=== PATIENT | male | born 1950 | race Caucasian/White ===

== ENCOUNTER 2024-07-26 12:44 | Inpatient (IN) ==
[2024-07-26] MEDS: Ondansetron 4 mg VIAL 2 MG/ML 2 ml VIAL IV ONE (13:03)
[2024-07-26] MEDS ORDERED: Atropine 1 MG/ML INJ 1 ML VIAL IV PUSH PRN (13:43)
[2024-07-26] MEDS ORDERED: Atropine 0.1 MG/ML 10 ml SYR (1 mg) ONE (13:52)
[2024-07-26 15:13] LABS: High Sensitivity Troponin 1 Hr 4 pg/mL (<20)
[2024-07-26] MEDS: Ondansetron 4 mg VIAL 2 MG/ML 2 ml VIAL IV PRN (16:22)
[2024-07-26] MEDS ORDERED: Atropine 0.1 MG/ML 10 ml SYR (1 mg) IV PUSH PRN (17:04)
[2024-07-27] MEDS: NS 0.9% 1000 ml BAG 1,000 ML IV SCH (05:56)
[2024-07-27 06:11] LABS: ABS Eosinophils 0.1 10^3/uL (0.0-0.5); ABS Lymphocytes 1.9 10^3/uL (1.0-4.8); ABS Monocytes 0.9 10^3/uL (0.0-1.1); ABS Neutrophils 7.1 10^3/uL (1.5-7.6); Hematocrit 40.4 % (38-53); Hemoglobin 13.6 g/dL (13.2-16.3); Lymphocyte % 18.7 %; Mean Corpuscular Hemoglobin 29.1 pg (27-33); Mean Corpuscular Hgb Conc 33.8 g/dL (31-36); Mean Corpuscular Volume 86.1 fL (80-97); Mean Platelet Volume 8.9 fL (7.5-11.2); Platelet Count 177 10^3/uL (150-450); Red Blood Count 4.69 10^6/uL (4.06-5.63); Red Cell Distribution Width 13.9 % (12-17)
[2024-07-27 06:33] LABS: Calcium 8.5 mg/dL (8.6-10.3); Creatinine, Serum 0.81 mg/dL (0.67-1.17); Magnesium 1.9 mg/dL (1.9-2.7); Phosphorus 3.1 mg/dL (2.5-5.0); Potassium 4.2 mmol/L (3.5-5.0); eGFR CKD-EPI 93.1 (>60)
[2024-07-27] MEDS: Magnesium Sulfate 2 gm BAG 2 GM/50 ML BAG IVPB ONE (07:46)
[2024-07-27] MEDS ORDERED: ceFAZolin 2 GM PREMIX 2 GM/50 ML BAG IV ONE (12:00)
[2024-07-27] MEDS ORDERED: fentaNYL 100 mcg/2 ml 50 MCG/ML VIAL ONE (13:27)
[2024-07-27] MEDS ORDERED: Lidocaine 1% VIAL 10 MG/ML 30 ML VIAL ONE (13:27)
[2024-07-27] MEDS ORDERED: Midazolam 5 mg/5 ml VIAL 1 mg/ml 5 ml VIAL (5 mg) ONE (13:27)
[2024-07-27] MEDS: ceFAZolin 2 GM PREMIX 2 GM/50 ML BAG IV ONE (15:31)
[2024-07-27] MEDS: ceFAZolin SYR FLUSH 1 GM/10 ML for pocket flush (cardiology) FLUSH ONE (15:31)
[2024-07-27] MEDS: fentaNYL 100 mcg/2 ml 50 MCG/ML VIAL IV SLOW PU ONE (15:31)
[2024-07-27] MEDS: Midazolam 10 mg/10 ml VIAL 1 mg/ml 10 ml VIAL (10 mg) IV SLOW PU ONE (15:32)
[2024-07-27 17:32] VITALS: BP 144/69
[2024-07-27] MEDS ORDERED: ceFAZolin VIAL 1 GM in NS 0.9% 50 ML 50 ML IVPB SCH (20:00)
== END 2024-07-27 17:30 | disposition home or self-care (01) | DRG 244 ==
LOC: ED 12:44 → EDHOLD 14:01 → ICU 14:40
PROVIDERS: ADMIT Internal Medicine Critical Care Medicine; ATTEND Internal Medicine Critical Care Medicine